=== PATIENT | female | born 1990 | race Caucasian/White ===

== ENCOUNTER 2016-12-19 10:09 | Day surgery (SDC) | payer OTHER ==
[~2016-12-19] VITALS: Ht 160 cm; Wt 71.7 kg
[~2016-12-19 10:09] MED LIST: ATARAX PO; BIOT1CAP2 PO; VITA500C2 PO; ZINC66TA PO
[2016-12-19] MEDS ORDERED: LR 1,000 ML IV ONE (10:15)
[2016-12-19 10:43] LABS: MEAN CORPUSCULAR HEMOGLOBIN 28.8 pg (27.0-33.0); MEAN CORPUSCULAR VOLUME 87.1 fl (80.0-96.0); RED CELL DISTRIBUTION WIDTH 13.1 % (11.5-14.5); WHITE BLOOD COUNT 7.5 10^3/uL (4.0-10.0)
[2016-12-19 11:01] LABS: CONTROL LINE HCG INT CTR LINE PRESENT
[2016-12-19] MEDS ORDERED: MIDAZOLAM INJ 2 MG/2 ML VIAL (J2250) As Ordered ONE (11:46)
[2016-12-19] MEDS ORDERED: LIDOCAINE 2% INJ 100 MG/5 ML SDV (FOR ANES.) As Ordered ONE (11:47)
[2016-12-19] MEDS ORDERED: ONDANSETRON 4MG/2ML VIAL (J2405) As Ordered ONE (11:47)
[2016-12-19] MEDS ORDERED: KETOROLAC 60 MG/2 ML VIAL (J1885) As Ordered ONE (11:47)
[2016-12-19] MEDS ORDERED: METOCLOPRAMIDE INJ 10MG/2ML VIAL (J2765) As Ordered ONE (11:47)
[2016-12-19] MEDS ORDERED: fentaNYL 250 MCG/5 ML INJECTION (J3010) As Ordered ONE (11:47)
[2016-12-19] MEDS ORDERED: PROPOFOL 200 MG/20 ML VIAL As Ordered ONE (11:47)
[2016-12-19] MEDS ORDERED: ROCURONIUM BROMIDE 50 MG/5 ML VIAL/SYRINGE As Ordered ONE (11:47)
[2016-12-19] MEDS ORDERED: BUPIVACAINE HCL 0.5% 30 ML VIAL As Ordered ONE (12:14)
[2016-12-19] MEDS ORDERED: GLYCOPYRROLATE INJ 0.2 MG/ML 2 ML VIAL As Ordered ONE (13:09)
[2016-12-19] MEDS ORDERED: NEOSTIGMINE 10 MG/10 ML VIAL (J2710) As Ordered ONE (13:09)
[2016-12-19] MEDS ORDERED: SILVER NITRATE APPLICATOR As Ordered ONE ×2 (13:16→13:17)
[2016-12-19] MEDS ORDERED: LR 1,000 ML IV SCH (14:00)
[2016-12-19] MEDS ORDERED: MEPERIDINE INJ 25 MG/ML VIAL (J2175) IV PRN (14:00)
[2016-12-19] MEDS ORDERED: PERCOCET 5MG/325MG TAB PO PRN (14:00)
[2016-12-19] MEDS ORDERED: METOCLOPRAMIDE INJ 10MG/2ML VIAL (J2765) IV PRN (14:00)
[2016-12-19] MEDS ORDERED: fentaNYL 100 MCG/2 ML INJECTION (J3010) IV PRN (14:00)
[2016-12-19] MEDS ORDERED: ONDANSETRON 4MG/2ML VIAL (J2405) IV PRN ×2 (14:00)
[2016-12-19] MEDS ORDERED: MORPHINE 2 MG/ML 1ML SYRINGE IV PRN (14:45)
[2016-12-19] MEDS ORDERED: KETOROLAC 30 MG/ML VIAL (J1885) IV PRN (14:45)
[2016-12-19 15:55] VITALS: BP 128/61
--- NOTE | 2016-12-20 06:15 | RO ---
DATE OF PROCEDURE: 12/19/2016 PREOPERATIVE DIAGNOSIS: Satisfied parity. POSTOPERATIVE DIAGNOSIS: Satisfied parity. PROCEDURE: Bilateral salpingectomy laparoscopic. SURGEON: Arnoldo Henley MD CORSETIER: Geno Gaona MD ANESTHESIA: general Bladimir. IV FLUIDS: 800 mL isotonic fluid, ESTIMATED BLOOD LOSS: 10 mL. URINARY OUTPUT: Via Crews catheter was removed at completion of procedure, 75 mL. COMPLICATIONS: None. SPECIMENS: Bilateral fallopian tubes. Patient is a 26-year-old, (G) 3, para (P) 3 with satisfied parity was counseled on several episodes with this provider in regards to risk of regret, etc., due to age for permanent sterilization. However still desires definitive management via salpingectomy. Therefore, the risks, benefits, alternatives and indications are again reviewed with patient. Informed consent was obtained. DESCRIPTION OF PROCEDURE: She was taken to the operating room where general anesthesia was obtained without difficulty. She was then prepped and draped after in a normal sterile fashion in low lithotomy position,. Prior to this, an exam under anesthesia was performed. and was significant for mobile midline uterus and no adnexal masses or fullness. After a time-out was performed, the sterile speculum was placed in the patient's vagina and cervix was visualized. A single-tooth tenaculum was used to grasp the anterior lip of the cervix with a Hanks dilator taped for uterine manipulation to the single-tooth tenaculum. The sterile speculum was removed and a Crews catheter was then placed in routine fashion without incident. At this point, gloves are exchanged and attention was turned to the abdomen where a 5 mm incision was made infraumbilical. A 5 mm trocar and sleeve was carefully introduced into the abdominal cavity while tenting up the abdomen and using a 90 degree angle entry under direct visualization. Pressure time entrance was noted to be less than 5 mmHg, consistent with a proper intraperitoneal placement. A pneumoperitoneum was then established using maximum pressure of 20 mmHg and a 360 degree evaluation starting with the entry site was performed noting no abnormalities and normal appearing liver edge as well as normal uterus, fallopian tubes and ovaries bilaterally. Also, no gross implants of endometriosis were appreciated. Two additional 5 mm trocars, one on the right and one on the left lower aspect of the abdominal wall were placed under direct laparoscopic visualization with the assistance of 0.25% Marcaine, several milliliters. In a stepwise fashion, the fimbriated end of the fallopian tube on the left side was grasped, lifted up and using a Harmonic scalpel the mesosalpinx was cross-clamped and ligated, and was followed up progressively until at the cornua, which then the fallopian tube was crossed via the Harmonic scalpel and again was clamped, crossed and ligated. The fallopian tube was then removed through the 5 mm trocar without incident on the left. The surgical site appeared hemostatic. At this point, the exact same procedure was performed on the right fallopian tube without incident, again removing through the 5 mm trocar intact without incident. Surgical sites appeared hemostatic at the conclusion of this. Re-examination again demonstrated excellent hemostasis and bilateral removal of fallopian tubes consistent with the patient's desire of satisfied parity. The trocars were then removed after gas was turned off and the abdomen desufflated. These were removed under direct visualization. After all the gas was removed and the trocars removed under direct visualization, the trocar sites were closed with #4-0 Monocryl on a PS2 in a subcuticular fashion and dressed with Dermabond on top of this. Attention was then placed to the patient's vagina, where the single-tooth tenaculum and Hanks dilator were removed without incident. Slight spotting was noted from where the single-tooth tenaculum was utilized requiring to two #2-0 Vicryl stitches in [id number] for hemostasis. Hemostasis was noted at the end of this. Vaginal sweep performed confirmed no retained foreign objects in the vagina. At the completion of the case, sponge, lap and needle counts correct times three. Patient tolerated the procedure well and was taken to the postanesthesia care unit (PACU) in stable condition. No antibiotics were used. Kalyan Henley OB-CRIMINAL PSYCHOLOGIST [facility]
== END 2016-12-19 16:35 | disposition home or self-care (01) ==
LOC: M SDC 10:09
PROVIDERS: ATTEND Student in an Organized Health Care Education/Training Program
DX: Z30.2 Encounter for sterilization (principal); F41.9 Anxiety disorder, unspecified; Z86.14 Personal history of Methicillin resistant Staphylococcus aureus infection; Z79.899 Other long term (current) drug therapy
CPT/HCPCS: 36415; 58661; 84703; 85027; 86850; 86900; 86901; 88302; J1885; J2250; J2405; J2710; J2765; J3010

== ENCOUNTER 2017-06-15 10:05 | Emergency (ER) | payer OTHER ==
[2017-06-15] MEDS: DERMABOND TOPICAL SKIN ADHESIVE TOP (11:00)
[2017-06-15] MEDS: NORCO, ANEXSIA 5/325MG TABLET (HYDROcodone/ACETAMINOPHEN) PO (11:00)
[2017-06-15] MEDS: ADACEL/BOOSTRIX VACCINE (DIPHTH/PERTUSS/ACELL/TETANUS)0.5ML SYR (90715) IM (11:42)
== END 2017-06-15 12:04 | disposition home or self-care (01) ==
LOC: M ED 10:05
DX: S91.211A Laceration without foreign body of right great toe with damage to nail, initial encounter (principal); W22.8XXA Striking against or struck by other objects, initial encounter; Y92.098 Other place in other non-institutional residence as the place of occurrence of the external cause; F41.9 Anxiety disorder, unspecified
CPT/HCPCS: 90715

== ENCOUNTER 2017-08-02 09:27 | Emergency (ER) | payer OTHER, SELFPAY ==
[2017-08-02 10:04] LABS: KETONE, URINE AUTO RFX NEGATIVE (NEGATIVE); LEUKOCYTE ESTERASE UR AUTO RFX 2+ (NEGATIVE); NITRITE, URINE AUTO RFX POSITIVE (NEGATIVE); RBC, URINE AUTO RFX 54 /HPF (0-3); SPECIFIC GRAVITY UR AUTO RFX 1.015 (1.002-1.035); SQUAM EPITHELIAL CELL UR AURFX 1 /HPF (0-6); WBC, URINE AUTO RFX TNTC /HPF (0-3)
== END 2017-08-02 10:22 | disposition home or self-care (01) ==
LOC: M ED 09:27
DX: N39.0 Urinary tract infection, site not specified (principal); Z79.899 Other long term (current) drug therapy
CPT/HCPCS: 81001

== ENCOUNTER 2017-09-15 18:34 | Emergency (ER) | payer OTHER ==
[2017-09-15] MEDS: NAPROXEN 250 MG TAB PO (20:39)
[2017-09-15] MEDS: METHOCARBAMOL 750 MG TAB PO (21:35)
== END 2017-09-15 21:41 | disposition home or self-care (01) ==
LOC: M ED 18:34
DX: S50.01XA Contusion of right elbow, initial encounter (principal); S20.229A Contusion of unspecified back wall of thorax, initial encounter; S70.311A Abrasion, right thigh, initial encounter; S70.312A Abrasion, left thigh, initial encounter; W10.8XXA Fall (on) (from) other stairs and steps, initial encounter; Y92.098 Other place in other non-institutional residence as the place of occurrence of the external cause
CPT/HCPCS: 73080

== ENCOUNTER → 2018-05-26 | Outpatient (REF) | payer OTHER ==
[~2018-05-26] MED LIST changes: +IBUP80TA PO; +KEFL500C17 PO; +MACR100C43 PO; +MULT1CHW39 PO; +NAPR-50 PO; +PYRI1TAB5 PO; +ROBA500T PO
== END ==
LOC: M SFHCLERA 10:47
PROVIDERS: ATTEND Nurse Practitioner Family
DX: J02.9 Acute pharyngitis, unspecified (principal)